=== PATIENT | male | born 1980 | race Caucasian/White ===

== ENCOUNTER 2024-02-22 20:51 | Emergency (ER) | payer OTHER, SELFPAY ==
[2024-02-22 21:05] VITALS: BP 137/87
--- NOTE | 2024-02-22 23:05 | ED.GENMED ---
History of Present Illness
General
Chief Complaint: Musculo-Skeletal Complaint
Source: patient
Exam Limitations: none
Time Seen by Provider: 02/22/24 21:38
Nursing documentation reviewed up to this point in time: agreed with
Travel History
Have you had any contact with someone who has COVID-19?: No
Do you have any symptoms of coronavirus? Fever > 100 degrees, chills, cough, shortness of breath, sore throat, loss of taste or smell, muscle aches, or headache?: No
History of Present Illness
History of Present Illness:
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
days has been able to ambulate. Denies redness or warmth denies fevers
Past History
Past History
ED Past Medical History: None
ED Past Surgical History: None
Patient has exhibited threatening behavior?: No
PSI?: No
Social History
Tobacco: Non-smoker
Alcohol: Occasional
Drug: None
Personal: Single
Living: with family
Employment: Employed
Review of Systems
Review of Systems
Allergies reviewed?: Yes
All Other Systems: ROS reviewed and negative except as documented in HPI and ROS
Phy Exam
Physical Exam
Physical Exam:
GENERAL: Alert , in no apparent distress
EYE: pupils equal and reactive
NECK: Supple, no significant adenopathy.
ENT: o/p clr, mmm.
CARDIAC: Regular rate and rhythm .
LUNGS: Clear breath sounds bilaterally, no acute respiratory distress, no wheezes/rales/rhonchi
ABDOMEN: Soft, without focal tenderness, no r/g, no cvat
NEUROLOGICAL: Alert and oriented, no focal neuro deficits
SKIN: Warm and dry, skin intact.
MUSCULOSKELETAL: Mild tenderness throughout the right foot but otherwise no overlying redness swelling warmth no redness good range of motion of the ankle and toes good cap refill good distal pulses no edema, well perfused.
PSYCH: Normal and appropriate interaction.
Course
Orders/Labs/Results
Orders:
Orders
02/22/24 21:07
Foot, Right 3 View [CR Foot - Right Min 3 Views] Urgent
Comment:
Reason For Exam: pain
02/22/24 23:05
Crutches-Treatment ONCE
boot [Ortho Boot Right- Treatment] ONCE
Short or tall?: Short
Vital Signs
Initial and Last Documented VS:
Initial Vital Signs
Resp
14
02/22/24 21:01
Last Documented Vital Signs
Temp Pulse Resp BP Pulse Ox
99.2 F 72 16 128/64 97
02/22/24 21:05 02/22/24 23:15 02/22/24 23:15 02/22/24 23:15 02/22/24 21:05
MDM/Problems Addressed
MDM/Problems Addressed:
43-year-old male presenting to the emergency department after getting his foot hit 2 days ago. Ongoing pain normal in appearance here normal pulses normal neurovascular evaluation good range of motion x-ray without signs of fracture. Patient with
likely soft tissue injury plan for symptomatic treatment otherwise return precautions given.
*Critical Care Note
Total Time (30-74mins, 75-104mins- exclusive of procedures): Not Applicable
ED Attending Note
-
Portions of this chart may have been created with voice recognition software.� Occasional wrong word or��sound alike� substitutions may have occurred due to the inherent limitations of voice recognition software.
Discharge Plan
Departure
Patient Disposition: Home (Routine Discharge)
Date of Disposition: 02/22/24
Time of Disposition: 23:43
Patient with high blood pressure during this ER visit?: No
Condition: Good
Covid-19: Not Applicable
Discharge Problem:
Foot sprain
Instructions: Muscle and Bone Pain (DC)
Prescriptions:
No Action
nortriptyline 10 mg Capsule
10 mg PO HS
acetaminophen 325 mg Tablet
650 mg PO Q4HPRN PRN (Reason: mild pain or temp > 100.4 F) Qty: 60 0RF
amoxicillin-pot clavulanate 875-125 mg tablet
1 tab PO Q12H 14 Days Qty: 28 0RF
hydrocodone-acetaminophen 5-325 mg tablet
1 tab PO Q4H PRN (Reason: Pain) Qty: 10 0RF
Referrals:
Danilo Giron MD [Family Provider] -
Moshe Ledezma DPM [Specified Professional Personl] - Follow up in 2-3 days
Activity Restrictions/Additional Instructions:
You came to the emergency department today with concerns of foot discomfort. You likely had a bruise to the area. Please keep the area elevated rest and ice. Please follow-up with the foot doctor as needed. Return to the emergency department any
worsening, new or concerning symptoms.
Interventions
Interventions:
*Risk Screen - Suicide Last Done: 02/22/24 21:01
*General Assessment Last Done: 02/22/24 21:01
*Neglect/Abuse Screening Last Done: 02/22/24 21:01
*ED COVID-19 Vaccine History Last Done: 02/22/24 21:01
ED-Musculoskeletal Assessment Last Done: 02/22/24 21:25
Discharge Date and Time
Print Language: [place]
[2024-02-22 23:15] VITALS: BP 128/64
== END 2024-02-22 23:53 | disposition home or self-care (01) ==
LOC: EMR 20:51
PROVIDERS: EMERGENCY PHYSICIAN Emergency Medicine; FAMILY PHYSICIAN Family Medicine
DX: S93.601A Unspecified sprain of right foot, initial encounter (principal); W23.0XXA Caught, crushed, jammed, or pinched between moving objects, initial encounter
CPT/HCPCS: 99283; 73630

== ENCOUNTER → 2024-05-12 18:52 | Outpatient (REF) | payer OTHER, SELFPAY | LOC: RAD 18:52 | PROVIDERS: ATTENDING PHYSICIAN Family Medicine | DX: M54.2 Cervicalgia (principal); M79.602 Pain in left arm; R20.0 Anesthesia of skin | CPT/HCPCS: 72050; 72072 ==

== ENCOUNTER → 2025-01-03 09:47 | Outpatient (REF) | payer OTHER, SELFPAY | LOC: RAD 09:47 | PROVIDERS: ATTENDING PHYSICIAN Family Medicine | DX: R05.9 Cough, unspecified (principal) | CPT/HCPCS: 71046 ==

== ENCOUNTER 2025-03-16 06:21 | Day surgery (SDC) | payer OTHER, SELFPAY | END 2025-03-16 11:17 | disposition home or self-care (01) | LOC: GI 06:21 | PROVIDERS: ATTENDING PHYSICIAN Surgery | DX: K62.5 Hemorrhage of anus and rectum (principal); K57.30 Diverticulosis of large intestine without perforation or abscess without bleeding; K64.9 Unspecified hemorrhoids | CPT/HCPCS: 45378 ==